=== PATIENT | female | born 1990 | race African-American/Black ===

== ENCOUNTER 2016-11-09 16:23 | Emergency (ER) | payer MEDICAID ==
[~2016-11-09 16:23] MED LIST: CYCL-36 PO; DICL50 PO
[2016-11-09] MEDS ORDERED: CALNTAB (17:06)
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
== END 2016-11-09 17:29 | disposition home or self-care (01) ==
LOC: HOBED 16:23
DX: O26.93 Pregnancy related conditions, unspecified, third trimester (principal); S39.81XA Other specified injuries of abdomen, initial encounter; Z3A.32 32 weeks gestation of pregnancy; Y04.0XXA Assault by unarmed brawl or fight, initial encounter
CPT/HCPCS: 99283